=== PATIENT | male | born 1960 | race Caucasian/White ===

== ENCOUNTER → 2017-07-17 | Outpatient (CLI) | payer OTHER ==
--- NOTE | 2017-07-17 20:52 | CONS ---
CONSULTATION 57-year-old male patient diagnosed having obstructive sleep apnea through a [facility] more than 10 years ago. The patient is coming in for evaluation and interested in updating his CPAP machine and his mask interface. He has been utilizing CPAP for all these years. He is not sure of the exact pressure setting. He is not sure of the exact diagnostic circumstances or the severity of his disease. He states that while off the treatment he snores and stops breathing. He becomes very tired and sleepy during the day. He goes to bed around 9 p.m., wakes up at 4 a.m. in the morning and according to him he has been compliant with the treatment. His current [place] score is 11. He has lost approximately 40 pounds and subsequently gained around 20 pounds over the past 5 years. Occasional restlessness in lower extremities. He has been utilizing a nose mask with mask interface. The exact type is not clear as the patient did not bring any of his equipment with him. No history of any motor vehicle accidents because of feeling drowsy or sleepy. PAST MEDICAL HISTORY: 1. SANDER, details discussed above. 2. Diabetes mellitus. 3. Depression. 4. Hypertension. 5. Hyperlipidemia. 6. Bipolar disorder. 7. Iron deficiency. 8. Chronic renal failure. 9. Chronic back pain. 10.History of grinding. PAST SURGICAL HISTORY: Include spinal injection for low back pain. ALLERGIES: Not known. OUTPATIENT MEDICATION LIST: Includes iron tablets of Zoloft 100 mg p.o. b.i.d., Lamictal 100 mg p.o. daily, Wellbutrin XL 150 mg p.o. daily, Lipitor 40 mg p.o. daily, lisinopril 5 mg p.o. daily, atenolol 25 mg p.o. daily, Protonix 40 mg p.o. daily, Abilify 20 mg p.o. daily, Toujeo 55 units twice a day. Humalog 15 units t.i.d. and Victoza 1.2 mg p.o. daily. SOCIAL HISTORY: The patient is an ex-smoker. No history of alcohol. No history of IV drugs. FAMILY HISTORY: Positive for obstructive sleep apnea in a brother who has a CPAP. REVIEW OF SYSTEMS: On today's evaluation the patient is having some cough, congestion and wheezing. He has been told to stop his Dulera by his primary care physician. He has not been taking any maintenance inhalers. He snores off the treatment. He has been somnolent and sleepy during the day. Weight has been fluctuating, overall he is down. No restlessness in lower extremities. He has chronic grinding of the teeth. No anxiety or panic attacks. No palpitation. No heartburn. No sweating. No anxiety. No claustrophobia. No sexual dysfunction. Positive history of depression. No history of any motor vehicle accidents because of feeling drowsy or sleepy. No seizure activity. No altered mentation. PHYSICAL EXAMINATION: BP is 154/84, pulse 72, respirations 16, temperature 97.7, saturation 94% on room air. Neck size is 20, weight is 324, height is 6 feet 1 inch, BMI is 42.7, [place] score was 4. GENERAL APPEARANCE: Calm, comfortable. Head is atraumatic, normocephalic. Neck is short, supple. Crowding of posterior pharynx, Mallampati class IV. Obvious grinding of the teeth. LUNGS: Diminished breath sounds bilaterally. HEART: Sounds are regular. Normal S1, S2. No S3, S4. No murmurs. ABDOMEN: Soft, nontender. No organomegaly. EXTREMITIES: No edema. No cyanosis or clubbing. NEUROLOGIC: A and O x3. There is no focal neurological deficits. PSYCHIATRIC: Negative for any active anxiety or depression. SKIN: Negative for any wounds or ulceration. IMPRESSION: 1. Obstructive sleep apnea. Patient is in for re-evaluation. Original study was done at [facility]. Exact diagnostic circumstances not clear. The disease severity is not known. The CPAP pressure that the patient is currently utilizing is not known. 2. Obesity with a BMI of 42.7. 3. Chronic hypersomnia [place] score of 11. 4. Diabetes mellitus. 5. Depression. 6. Hypertension. 7. Hyperlipidemia. 8. Bipolar disorder. 9. Chronic renal failure. 10.Chronic back pain. 11.History of bruxism. PLAN: 1. Encourage weight loss. 2. Schedule this patient for a split night study to reconfirm presence of sleep apnea and make appropriate CPAP adjustment accordingly. 3. Optimize sleep hygiene measures. 4. We will continue to follow. MMODL / IJN: [id number] /
== END | disposition home or self-care (01) ==
LOC: SLEEP 14:26
PROVIDERS: ATTEND Internal Medicine Critical Care Medicine
DX: G47.33 Obstructive sleep apnea (adult) (pediatric) (principal); E66.9 Obesity, unspecified; G47.10 Hypersomnia, unspecified; E11.9 Type 2 diabetes mellitus without complications; F32.9 Major depressive disorder, single episode, unspecified; E78.5 Hyperlipidemia, unspecified; I12.9 Hypertensive chronic kidney disease with stage 1 through stage 4 chronic kidney disease, or unspecified chronic kidney disease; N18.9 Chronic kidney disease, unspecified; M54.9 Dorsalgia, unspecified; Z87.898 Personal history of other specified conditions; Z99.89 Dependence on other enabling machines and devices; Z68.41 Body mass index [BMI] 40.0-44.9, adult
CPT/HCPCS: 99211

== ENCOUNTER → 2022-07-18 | Outpatient (CLI) | payer OTHER ==
[2022-07-18 15:44] LABS: Basophils # (A) 0.03 X 10*3/uL (0.00-0.10); Basophils % (A) 0.4 %; Eosinophils # (A) 0.15 X 10*3/uL (0.04-0.35); Eosinophils % (A) 2.2 %; HCT 43.4 % (39.6-50.0); HGB 13.3 g/dL (13.0-17.0); Immature Grans, Automated 0.4 %; Lymphocytes # (A) 1.62 X 10*3/uL (0.90-5.00); Lymphocytes % (A) 23.4 %; MCH 28.8 pg (27.0-32.0); MCHC 30.6 g/dL (32.0-37.0); MCV 93.9 fL (80.0-97.0); Mean Platelet Volume 11.9 fL (9.5-12.2); Monocytes # (A) 0.64 X 10*3/uL (0.20-1.00); Monocytes % (A) 9.3 %; NRBC Per 100 WBC 0 /100 WBCS (0.0-0.0); Neutrophils # (A) 4.44 X 10*3/uL (1.80-7.70); Neutrophils % (A) 64.3 %; Platelet Count 115 X 10*3/uL (140-440); RBC 4.62 X 10*6/uL (4.40-5.60); RDW 14.1 % (11.5-14.5); WBC 6.91 X 10*3/uL (4.50-10.00)
[2022-07-18 16:08] LABS: African American GFR (CKD) 37.1 (60.0-200.0); Albumin 4.5 g/dL (3.8-4.9); Albumin/Globulin Ratio 1.61 (1.60-3.17); Anion Gap 9.9 mmol/L (10.00-18.00); BUN/Creat Ratio 16.68 Ratio (12.00-20.00); Blood Urea Nitrogen 35.7 mg/dL (9.0-27.0); Calcium 9.8 mg/dL (8.7-10.3); Carbon Dioxide 21.4 mmol/L (20.0-27.5); Globulin 2.8 g/dL (1.6-3.3); Potassium 5.2 mmol/L (3.5-5.5); Total Bilirubin 0.3 mg/dL (0.30-1.20); Total Protein 7.3 g/dL (6.2-8.2)
== END | disposition home or self-care (01) ==
LOC: LABWHC1 10:19
PROVIDERS: ATTEND Internal Medicine Gastroenterology
DX: K76.0 Fatty (change of) liver, not elsewhere classified (principal)
CPT/HCPCS: 36415; 80053; 85025

== ENCOUNTER → 2023-08-08 | Outpatient (CLI) | payer OTHER ==
--- NOTE | 2023-08-08 08:30 | US ---
EXAMINATION TYPE: US liver DATE OF EXAM: 08/08/2023 COMPARISON: NONE CLINICAL INDICATION: Male, 63 years old with history of K74.60 UNSPECIFIED CIRRHOSIS OF LIVER; cirrho sis TECHNIQUE: Multiple sonographic images of the right upper quadrant are obtained. FINDINGS: EXAM MEASUREMENTS: Liver Length: 23 cm Gallbladder Wall: .2 cm CBD: .3 cm Right Kidney: 12.5 x 5.7 x 6.0 cm BUNDLE TIER AND LABELER NOTES: Pancreas: Obscured by bowel gas Liver: Increased attenuation hepatomegaly , no dilated ducts, cystic structures or masses. Gallbladder: No stones seen Evidence for sonographic Swartz's sign: no CBD: wnl Right Kidney: Ill defined borders subcentimeter cysts seen largest 1.2 x .9 x 1.1 cm. IMPRESSION: 1. Hepatic steatosis without suspicious observation. 2. Right renal cyst.
[2023-08-08 10:36] LABS: Basophils # (A) 0.03 X 10*3/uL (0.00-0.10); Basophils % (A) 0.4 %; Eosinophils # (A) 0.12 X 10*3/uL (0.04-0.35); Eosinophils % (A) 1.7 %; HCT 42.4 % (39.6-50.0); HGB 13.4 g/dL (13.0-17.0); Lymphocytes % (A) 18.2 %; MCH 29.7 pg (27.0-32.0); MCHC 31.6 g/dL (32.0-37.0); Mean Platelet Volume 11.5 FL (9.5-12.2); Monocytes # (A) 0.63 X 10*3/uL (0.20-1.00); Monocytes % (A) 8.8 %; NRBC Per 100 WBC 0 X 10*3/uL (0.00-0.01); Neutrophils # (A) 5.04 X 10*3/uL (1.80-7.70); Neutrophils % (A) 70.5 %; Platelet Count 145 X 10*3/uL (140-440); RBC 4.51 X 10*6/uL (4.40-5.60); RDW 13.9 % (11.5-14.5); WBC 7.15 X 10*3/uL (4.50-10.00)
[2023-08-08 11:50] LABS: ALT 25 U/L (10-49); AST 32 U/L (14-35); Albumin 4.5 g/dL (3.8-4.9); Albumin/Globulin Ratio 1.67 Ratio (1.60-3.17); Alkaline Phosphatase 100 U/L (41-126); Blood Urea Nitrogen 42.9 mg/dL (9.0-27.0); Calcium 10.6 mg/dL (8.7-10.3); Carbon Dioxide 18.4 mmol/L (21.6-31.8); Chloride 110 mmol/L (96-109); Globulin 2.7 g/dL (1.6-3.3); Glucose 91 mg/dL (70-110); Potassium 5.3 mmol/L (3.5-5.5); Sodium 140 mmol/L (135-145); Total Bilirubin <0.2 mg/dL (0.3-1.2); Total Protein 7.2 g/dL (6.2-8.2)
== END | disposition home or self-care (01) ==
LOC: RADUSWWP 06:50
PROVIDERS: ATTEND Internal Medicine Gastroenterology
DX: N28.1 Cyst of kidney, acquired (principal); K74.60 Unspecified cirrhosis of liver; K76.0 Fatty (change of) liver, not elsewhere classified
CPT/HCPCS: 76705; 80053; 85025

== ENCOUNTER → 2023-09-13 | Outpatient (CLI) | payer OTHER | END | disposition home or self-care (01) | LOC: LABWHC1 09:02 | PROVIDERS: ATTEND Internal Medicine Gastroenterology | DX: K74.60 Unspecified cirrhosis of liver (principal); K76.0 Fatty (change of) liver, not elsewhere classified | CPT/HCPCS: 36415; 82105 ==

== ENCOUNTER → 2023-11-12 | Outpatient (CLI) | payer OTHER ==
--- NOTE | 2023-12-04 13:33 | US ---
EXAMINATION TYPE: US arterial LE single level DATE OF EXAM: 12/04/2023 1:13 PM CLINICAL INDICATION: Male, 63 years old with history of I73.9; History of: Smoker: Previous Hypertension: Yes Diabetic: Yes Hyperlipidemia: Yes TIA/CVA: No Doppler Waveforms: Right: Biphasic Left: Biphasic Right Brachial Pressure: 149 Left Brachial Pressure: 155 Ankle-Brachial Indices: Right: 1.3 Left: 1.3 (Vessel hardening > 1.4; Normal 0.9 - 1.4, Moderate 0.7 - 0.9, Severe 0.5-0.7) IMPRESSION: Ankle brachial indices within normal limits.
== END | disposition home or self-care (01) ==
LOC: RADUSWWP 09:45
PROVIDERS: ATTEND Internal Medicine Geriatric Medicine
DX: I73.9 Peripheral vascular disease, unspecified (principal)
CPT/HCPCS: 93922

== ENCOUNTER → 2024-09-15 | Outpatient (CLI) | payer OTHER ==
[2024-09-15 15:10] LABS: Basophils # (A) 0.04 X 10*3/uL (0.00-0.10); Basophils % (A) 0.6 %; Eosinophils % (A) 1.6 %; HCT 43.7 % (39.6-50.0); HGB 13.7 g/dL (13.0-17.0); Lymphocytes # (A) 1.54 X 10*3/uL (0.90-5.00); Lymphocytes % (A) 24.7 %; MCH 29.7 pg (27.0-32.0); MCHC 31.4 g/dL (32.0-37.0); MCV 94.8 FL (80.0-97.0); Mean Platelet Volume 12.5 FL (9.5-12.2); Monocytes # (A) 0.55 X 10*3/uL (0.20-1.00); Monocytes % (A) 8.8 %; NRBC Per 100 WBC 0 X 10*3/uL (0.00-0.01); Neutrophils # (A) 3.97 X 10*3/uL (1.80-7.70); Neutrophils % (A) 63.7 %; Platelet Count 145 X 10*3/uL (140-440); RBC 4.61 X 10*6/uL (4.40-5.60); RDW 13.8 % (11.5-14.5); WBC 6.24 X 10*3/uL (4.50-10.00)
[2024-09-15 15:45] LABS: BUN/Creat Ratio 12.37 Ratio (12.00-20.00); Blood Urea Nitrogen 33.4 mg/dL (9.0-27.0); Chloride 107 mmol/L (96-109); Glucose 146 mg/dL (70-110); Potassium 4.8 mmol/L (3.5-5.5); Sodium 139 mmol/L (135-145)
[2024-09-15 15:46] LABS: ALT 27 U/L (10-49); AST 28 U/L (14-35); Albumin 3.8 g/dL (3.8-4.9); Albumin/Globulin Ratio 1.73 Ratio (1.60-3.17); Alkaline Phosphatase 111 U/L (41-126); Calcium 9.3 mg/dL (8.7-10.3); Globulin 2.2 g/dL (1.6-3.3); Total Bilirubin 0.2 mg/dL (0.3-1.2)
== END | disposition home or self-care (01) ==
LOC: LABWHC1 09:37
PROVIDERS: ATTEND Nurse Practitioner Family
DX: K74.60 Unspecified cirrhosis of liver (principal); K76.0 Fatty (change of) liver, not elsewhere classified
CPT/HCPCS: 36415; 80053; 82105; 85025

== ENCOUNTER 2024-10-17 09:59 | Day surgery (SDC) | payer OTHER ==
[2024-10-16 09:24] VITALS: BMI 32.5
[2024-10-17 10:23] VITALS: TEMP 97.6
[2024-10-17] MEDS: LACTATED RINGERS 1,000 ML IV SCH (10:25)
[2024-10-17] MEDS: LIDOCAINE 1% (10MG/ML) FOR IV START INTRADERMA STA (10:25)
[2024-10-17] MEDS: IV FLUID CONTINUATION 1,000 ML IV ONE ×3 (10:25→11:50)
[2024-10-17 10:38] LABS: Glucose,Whole Blood 96 mg/dL (70-110)
[2024-10-17] MEDS ORDERED: PROPOFOL 10 MG/ML 20 ML VIAL IV ONE (11:14)
--- NOTE | 2024-10-17 11:35 | P.PCN ---
Date of Procedure: 10/17/24 Procedure(s) Performed: BRIEF HISTORY: Patient is a 64-year-old pleasant white male scheduled for an elective colonoscopy as a part of screening for colon cancer. PROCEDURE PERFORMED: Colonoscopy. PREOPERATIVE DIAGNOSIS: Screening for colon cancer. IV sedation per Anesthesia. PROCEDURE: After informed consent was obtained, the patient, was brought into the endoscopy unit. IV sedation was administered by Anesthesia under continuous monitoring. Digital rectal examination was normal. Initially the Olympus CF-160 flexible video colonoscope was then inserted in the rectum, gradually advanced into the cecum without any difficulty. Careful examination was performed as the scope was gradually being withdrawn. Ileocecal valve and the appendiceal orifice were visualized and appeared normal. Prep was excellent. Mucosa of the cecum, ascending colon, transverse colon, descending colon, sigmoid colon, and rectum appeared normal. Scattered sigmoid diverticulosis. Retroflexion was performed in the rectum and no lesions were seen. The patient tolerated the procedure well. IMPRESSION: Normal-appearing colon from rectum to cecum with no evidence of colorectal neoplasia Scattered sigmoid diverticulosis RECOMMENDATIONS: Findings of this examination were discussed with the patient as well as his family. He was advised to have repeat screening colonoscopy in 10 years..
[2024-10-17 11:58] VITALS: BP 114/75; PULSE 61; RESP 17
== END 2024-10-17 12:24 | disposition home or self-care (01) ==
LOC: ORWHC2ENDO 09:59
PROVIDERS: ATTEND Internal Medicine Gastroenterology
DX: Z12.11 Encounter for screening for malignant neoplasm of colon (principal); K57.30 Diverticulosis of large intestine without perforation or abscess without bleeding; I10 Essential (primary) hypertension; E78.5 Hyperlipidemia, unspecified; J44.9 Chronic obstructive pulmonary disease, unspecified; G47.33 Obstructive sleep apnea (adult) (pediatric); F31.9 Bipolar disorder, unspecified; Z79.84 Long term (current) use of oral hypoglycemic drugs; Z79.85 Long-term (current) use of injectable non-insulin antidiabetic drugs; Z79.4 Long term (current) use of insulin; Z79.899 Other long term (current) drug therapy
CPT/HCPCS: 45378; J2704